=== PATIENT | male | born 1985 | race Caucasian/White ===

== ENCOUNTER 2019-02-04 10:16 | Emergency (ER) | payer OTHER ==
[~2019-02-04] VITALS: Ht 175.3 cm; Wt 84.1 kg
[2019-02-04] MEDS ORDERED: KETOROLAC 30 MG/ML VIAL (J1885) IV ONE (11:15)
[2019-02-04] MEDS ORDERED: NS 1,000 ML IV ONE (11:15)
[2019-02-04] MEDS ORDERED: ONDANSETRON 4MG/2ML VIAL (J2405) IV ONE (11:15)
[2019-02-04] MEDS: GASTROGRAFIN SOLUTION 30ML PO SCH ×2 (11:35→12:15)
[2019-02-04 11:37] LABS: BASO % 0.1 % (0.0-1.0); EOS # 0.2 10^3/uL (0.0-0.50); EOS % 2.1 % (0.0-3.0); HEMATOCRIT 43.9 % (42.0-52.0); HEMOGLOBIN 14.9 g/dl (13.5-17.5); LYMPH # 2.6 10^3/uL (1.5-4.5); LYMPH % 33.6 % (24.0-44.0); MEAN CORPUSCULAR HGB CONC 33.9 g/dl (32.0-36.5); MEAN CORPUSCULAR VOLUME 88.3 fl (80.0-96.0); MONO # 0.6 10^3/uL (0.0-0.8); MONO % 7.7 % (0.0-5.0); NEUTROPHILS # 4.3 10^3/uL (1.8-7.7); NEUTROPHILS % 56.1 % (36.0-66.0); PLATELET COUNT, AUTOMATED 252 10^3/uL (150-450); RED BLOOD COUNT 4.97 10^6/uL (4.30-6.10); WHITE BLOOD COUNT 7.7 10^3/uL (4.0-10.0)
[2019-02-04 12:25] LABS: ALBUMIN 3.7 GM/DL (3.2-5.2); ALT/SGPT 54 U/L (12-78); BILIRUBIN,DIRECT < 0.1 MG/DL (0.0-0.2); BILIRUBIN,TOTAL 0.2 MG/DL (0.2-1.0); BLOOD UREA NITROGEN 17 MG/DL (7-18); CALCIUM LEVEL 8.6 MG/DL (8.5-10.1); CARBON DIOXIDE LEVEL 23 MEQ/L (21-32); CHLORIDE LEVEL 109 MEQ/L (98-107); CREATININE FOR GFR 0.84 MG/DL (0.70-1.30); GLOMERULAR FILTRATION RATE > 60.0 (>60); GLUCOSE, FASTING 85 MG/DL (70-100); LIPASE 117 U/L (73-393); POTASSIUM SERUM 4.9 MEQ/L (3.5-5.1); SODIUM LEVEL 139 MEQ/L (136-145); TOTAL PROTEIN 7.3 GM/DL (6.4-8.2)
[2019-02-04] MEDS ORDERED: ISOVUE-370 76% 100ML VIAL (Q9967) As Ordered ONE (12:45)
[2019-02-04] MEDS ORDERED: ZOFR4TAB16 PO (14:18)
[2019-02-04 14:23] VITALS: BP 118/73
--- NOTE | 2019-02-05 10:16 | REP ---
CT ABDOMEN AND PELVIS WITH IV AND ORAL CONTRAST: HISTORY: Epigastric and right lower quadrant tenderness. CT CONTRAST DOSE: 100 mL of intravenous Isovue [address] FINDINGS: Preliminary digital hadoop administrator radiograph demonstrates multiple loops of air-filled mildly dilated small bowel in the central abdomen. There is air and stool in the proximal and distal colon loops without colonic dilation. Question ileus. The lung bases show mild subsegmental discoid atelectatic changes but are otherwise clear. Liver and spleen are normal in size homogeneous in texture. There are two small accessory splenules. There is fatty infiltration of the liver mild in degree. No adrenal lesion is seen. The kidneys enhance symmetrically and are morphologically intact. 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 Pancreas and gallbladder are unremarkable. No retroperitoneal mass or adenopathy is observed. A normal appendix seen in the right lower quadrant. Colonic loops are unremarkable on CT slices. Small bowel loops opacified with oral contrast. No obstructive lesion is seen. No abdominal wall defect is observed. No evidence of free air abnormal fluid collection. Window settings show no bony destructive lesion. IMPRESSION: Mildly prominent loops of small intestine without obstructive lesion. Question mild ileus. Mild fatty infiltration of the liver. Otherwise negative CT study of the abdomen pelvis. Electronically Signed by Dwaine Hook MD 02/05/2019 10:27 A
== END 2019-02-04 14:28 | disposition home or self-care (01) ==
LOC: M ED 10:16
DX: K56.7 Ileus, unspecified (principal)
CPT/HCPCS: 36415; 74177; 80048; 80076; 83690; 85025; 96374; 96375; 99284; J1885; J2405; Q9963; Q9967